=== PATIENT | male | born 1960 | race Caucasian/White ===

== ENCOUNTER 2021-05-13 17:30 | Observation (INO) ==
[2021-05-13 19:49] LABS: Basophils # 0.1 K/mcL (0.0-0.2); Basophils % 0.7 %; Eosinophils # 0.2 K/mcL (0.0-0.6); Eosinophils % 1.8 %; Hematocrit 42.1 % (37.5-50.1); Immature Granulocytes % 0.6 % (0-4); Lymphocytes # 2.2 K/mcL (0.6-4.6); Lymphocytes % 24.4 %; Mean Corpuscular HGB Conc 33.3 g/dL (31.6-35.5); Mean Corpuscular Hemoglobin 28.1 pg (28.0-33.3); Mean Corpuscular Volume 84.4 fL (83.0-100.0); Mean Platelet Volume 9.9 fL (9.4-12.4); Monocytes # 0.5 K/mcL (0.0-1.3); Monocytes % 5.2 %; Platelet Count 267 K/mcL (140-400); Red Blood Count 4.99 M/mcL (4.19-5.50); Red Cell Distribution Width 13.3 % (11.5-14.5); Segmented Neutrophils % 67.3 %; White Blood Count 8.9 K/mcL (4.3-11.1)
[2021-05-13 20:13] LABS: BUN/Creatinine Ratio 18 (6-26); Blood Urea Nitrogen 15 mg/dL (8-23); Calcium 9.1 mg/dL (8.6-10.3); Carbon Dioxide 24 mEq/L (23-29); Chloride 105 mEq/L (98-107); Glucose 141 mg/dL (70-105); Osmolality,Calculated 289 (280-300); Potassium 3.4 mEq/L (3.5-5.1); Sodium 138 mEq/L (136-145); Troponin I < 0.03 ng/mL (< 0.04); eGFR For African Americans > 60 (> 60); eGFR For Non-African Americans > 60 (> 60)
[2021-05-13] MEDS ORDERED: Aspirin 81 MG TAB.CHEW PO STA (21:41)
[2021-05-13] MEDS ORDERED: *HR* OxyCODONE Immed Rel 5 MG TABLET PO PRN (22:50)
[2021-05-13] MEDS ORDERED: Acetaminophen 325 MG TABLET PO PRN (22:50)
[2021-05-13] MEDS ORDERED: *HR* HYDROcodone/Acet 5/325 mg TABLET PO PRN (22:50)
[2021-05-13] MEDS ORDERED: Melatonin 3 MG TABLET PO PRN (22:50)
[2021-05-13] MEDS ORDERED: Naloxone 0.4 MG/ML INJ IVP PRN (22:50)
[2021-05-13] MEDS ORDERED: Ondansetron ODT 4 MG TAB.RAPDIS SL PRN (22:50)
[2021-05-13] MEDS ORDERED: Perflutren Lipid Microsphere 1.3 ML in 0.9 % Sodium Chloride 8.7 ML IVP PRN (22:53)
[2021-05-13] MEDS ORDERED: Nitroglycerin 0.4 MG TAB.SUBL SL PRN (23:44)
[2021-05-14 01:31] LABS: Prothrombin Time 11.4 Seconds (9.4-12.1)
[2021-05-14 01:33] LABS: Activated Partial Thrombo Time 31.4 Seconds (26.0-36.0)
[2021-05-14 01:41] LABS: Estimated Average Glucose 117 mg/dl; Hemoglobin A1C 5.7 %
[2021-05-14 01:46] LABS: Chol/HDL Ratio 4.1 (0-4.9)
[2021-05-14 01:58] LABS: Thyroid Stimulating Hormone 2.105 mcIU/mL (0.340-5.600)
[2021-05-14] MEDS ORDERED: *HR* FentaNYL (PF) 100 MCG/2 ML VIAL ONE (10:43)
[2021-05-14] MEDS ORDERED: *HR* Midazolam HCl 2 MG/2 ML VIAL ONE (10:43)
[2021-05-14] MEDS ORDERED: 0.9 % Sodium Chloride 2,000 ML ONE (10:44)
[2021-05-14] MEDS ORDERED: ISOVUE-370 200 ML INFUS..BTL ONE (10:44)
[2021-05-14] MEDS ORDERED: *HR* Heparin 10,000 UNIT/10 ML VIAL ONE (10:44)
[2021-05-14] MEDS ORDERED: Heparin 1,000 UNITS/500 mL 500 ML ONE (10:44)
[2021-05-14] MEDS ORDERED: Nitroglycerin 1,000 MCG/5 ML VIAL IV ONE (10:44)
[2021-05-14] MEDS: Isosorbide MONOnitrate (24 HR) 30 MG TAB.ER.24H PO SCH (14:13)
[2021-05-14 15:47] VITALS: O2SAT 95
[2021-05-15 06:59] VITALS: BP 110/72; PULSE 72; TEMP 97.8
[2021-05-15] MEDS ORDERED: amLODIPine 5 MG TABLET PO SCH (09:00)
[2021-05-15] MEDS ORDERED: Aspirin 81 MG TAB.CHEW PO SCH (09:00)
[2021-05-15] MEDS: Isosorbide MONOnitrate (24 HR) 30 MG TAB.ER.24H PO SCH (09:01)
[2021-05-15] MEDS ORDERED: Budesonide/Formoterol 160/4.5 1 PUFF INH IH SCH (10:00)
== END 2021-05-15 12:09 | disposition home or self-care (01) ==
LOC: 3ANU 17:30 → EMEROOARM 17:30 → SUATTDRO 22:53 → 3ANU 23:30
PROVIDERS: ADMIT Internal Medicine; ATTEND Family Medicine